=== PATIENT | female | born 1955 | race Caucasian/White ===

== ENCOUNTER 2019-07-26 22:31 | Inpatient (IN) | payer OTHER ==
[~2019-07-26] VITALS: Ht 177.8 cm; Wt 76.7 kg
[~2019-07-26 22:31] MED LIST: ACET12.55 PO; AMLO10TA7 PO; BLOO-129 IN; DARI7.5T PO; FLUO20CA42 PO; FURO20TA4 PO; HYDR25TA4 PO; INSU100V27 SQ; INSU100V7 SQ; LEVO100T9 PO; LEVO300T6 PO; LISI40TA4 PO; LOVA40TA2 PO; PANT40TA4 PO; TRAZ150T75 PO
--- NOTE | 2019-07-26 22:45 | NUR ---
PRESENTED TO THE ER FRO EVALUATION OF R KNEE PAIN. PT DENIED ANY INJURY OR ACCIDENT.
--- NOTE | 2019-07-26 22:51 | NUR ---
AT THE BED SIDE
[2019-07-26] MEDS ORDERED: KETOROLAC TROMETHAMINE INJ 30 MG/ML VIAL ONE (22:59)
[2019-07-26] MEDS ORDERED: KETOROLAC TROMETHAMINE INJ 30 MG/ML VIAL IM ONE (23:00)
[2019-07-27 01:38] LABS: BASOPHILS % (AUTO) 0.2 % (0.0-2.0); EOSINOPHILS % (AUTO) 0.5 % (0.0-6.0); HEMATOCRIT 24 % (33-45); HEMOGLOBIN 7.5 g/dL (11.5-14.8); LYMPHOCYTES # (AUTO) 0.5 /CMM (0.8-4.8); LYMPHOCYTES % (AUTO) 3.6 % (20.0-44.0); MEAN CORPUSCULAR HGB CONC 32 g/dl (31.0-36.0); MEAN CORPUSCULAR VOLUME 87 fL (82-100); MONOCYTES # (AUTO) 0.4 /CMM (0.1-1.30); MONOCYTES % (AUTO) 2.7 % (2.0-12.0); NEUTROPHILS # (AUTO) 13.1 /CMM (1.8-8.9); PLATELET COUNT (AUTO) 232 /CMM (150-450); RED BLOOD CELL COUNT(AUTO) 2.71 MIL/uL (4.0-5.2); WHITE BLOOD COUNT (AUTO) 14.1 K/uL (4.3-11.0)
[2019-07-27 01:45] LABS: CALCIUM, SERUM 8.2 mg/dL (8.5-10.1); CREATININE 3.2 mg/dL (0.6-1.3); POTASSIUM 4.8 mmol/L (3.5-5.1)
[2019-07-27] MEDS ORDERED: AMLO10TA7 PO (02:02)
[2019-07-27] MEDS ORDERED: OXYC60TA8 PO (02:02)
[2019-07-27] MEDS ORDERED: BIOT5000 PO (02:02)
[2019-07-27] MEDS ORDERED: LEVO75TA7 PO (02:02)
[2019-07-27] MEDS ORDERED: HYDR-4077 PO (02:02)
[2019-07-27] MEDS ORDERED: TRAZ-257 PO (02:02)
[2019-07-27] MEDS ORDERED: CARV25TA2 PO (02:02)
[2019-07-27] MEDS ORDERED: ISOS60TA4 PO (02:02)
[2019-07-27] MEDS ORDERED: FLUO40CA49 PO (02:02)
[2019-07-27] MEDS ORDERED: CLOP75TA15 PO (02:02)
[2019-07-27] MEDS ORDERED: METO-295 PO (02:02)
--- NOTE | 2019-07-27 04:00 | NUR ---
pt was transferred to the floor in stable condition
[2019-07-27 04:20] VITALS: BP 170/57
--- NOTE | 2019-07-27 04:20 | NUR ---
MS RN NOTES RECEIVED PATIENT ON 419. PATIENT IS ALERT AND ORIENTED X 4. BREATHING EVEN AND UNLABORED ON 2L NC. SHOWS NO SIGNS OF ACUTE RESPIRATORY DISTRESS. NO ACUTE PAIN. IV ON R HAND 22G. SHOWS NO SIGNS OF INFILTRATION, NO REDNESS. CLEAN DRY AND INTACT. BELONGINGS CHECKLIST COMPLETED AND SKIN ASSESSMENT COMPLETED. SAFETY PRECAUTIONS IN PLACE. BED IN LOWEST POSITION, LOCKED, AND CALL LIGHT KEPT WITHIN REACH. WILL CONTINUE TO MONITOR.
[2019-07-27] MEDS ORDERED: HYDROCODONE/APAP 5/325MG 1 EACH TABLET PO PRN (04:30)
[2019-07-27] MEDS ORDERED: ACETAMINOPHEN 325 MG TABLET PO PRN (04:30)
[2019-07-27] MEDS ORDERED: Z GUARD REMEDY 2 OZ OINT TP PRN (04:30)
[2019-07-27] MEDS ORDERED: ONDANSETRON HCL/PF 4 MG/2 ML VIAL IVP PRN (04:30)
[2019-07-27 04:32] LABS: ALANINE AMINOTRANSFERASE 15 U/L (12-78); ALBUMIN 2.6 g/dL (3.4-5.0); ALKALINE PHOSPHATASE 99 U/L (46-116); ASPARTATE AMINOTRANSFERASE 16 U/L (15-37); BILIRUBIN,TOTAL 0.1 mg/dL (0.2-1.0)
[2019-07-27 04:44] LABS: IRON, SERUM 57 ug/dl (50-175); TOTAL IRON BINDING CAPACITY 158 ug/dl (250-450)
[2019-07-27 05:30] VITALS: BP 150/46
[2019-07-27] MEDS ORDERED: KETOROLAC TROMETHAMINE 10 MG TABLET PO PRN (06:00)
--- NOTE | 2019-07-27 06:37 | NUR ---
MS RN NOTES PATIENT IS ALERT AND ORIENTED X3- 4. BREATHING EVEN AND UNLABORED ON 2L NC. SHOWS NO SIGNS OF ACUTE RESPIRATORY DISTRESS. NO ACUTE PAIN. IV ON R HAND 22G. SHOWS NO SIGNS OF INFILTRATION, NO REDNESS. CLEAN DRY AND INTACT. ALL DUE MEDICATIONS GIVEN. SAFETY PRECAUTIONS IN PLACE. BED IN LOWEST POSITION, LOCKED, AND CALL LIGHT KEPT WITHIN REACH. WILL ENDORSE TO ONCOMING NURSE.
--- NOTE | 2019-07-27 07:47 | NUR ---
MS RN NOTES RECEIVED PATIENT IN BED RESTING COMFORTABLY IN MODERATE HIGH BACK REST. IS ALERT AND ORIENTED X3- 4. ON OXYGEN 2LPM VIA NC. NO SIGNS OF DISTRESS NOTED AT THIS TIME. NO IV ACCESS AT THIS TIME, WILL TRY TO INSERT IV LATER. SAFETY PRECAUTIONS IN PLACE. BED IN LOWEST POSITION, LOCKED, AND CALL LIGHT KEPT WITHIN REACH. WILL CONTINUE TO MONITOR.
[2019-07-27 08:00] VITALS: BP 181/57
[2019-07-27] MEDS: PANTOPRAZOLE 40 MG TABLET.DR PO SCH (08:17)
[2019-07-27] MEDS: AMLODIPINE BESYLATE 5 MG TABLET PO SCH (08:32)
[2019-07-27] MEDS: MINERAL OIL/PETROLATUM,WHITE 120 GM JAR TP SCH (10:00)
--- NOTE | 2019-07-27 10:01 | NUR ---
WOUND CARE CONSULT: PT PRESENTS WITH RASH TO RT BREASTFOLD, SACRAL SCARRING AND DRY SKIN TO LOWER LEGS AND FEET, PRESENT ON ADMISSION. RECOMMENDATIONS MADE FOR SKIN PROTECTION AND SKIN CARE. DISCUSSED WITH NURSING STAFF. WILL SEE PRN. VAZQUEZ IN AGREEMENT WITH PLAN OF CARE. CURRENT EVELIA SCORE IS 15. Addendum: 07/27/19 at 1003 by LUNA MITCHELL WNDNU Amended: Links added.
--- NOTE | 2019-07-27 10:57 | NUR ---
RN NOTES EUCERIN CREAM NOT AVAILABLE AT THIS TIME, F/U WITH PHARMACY ALREADY. WAITING TO BE DELIVERED.
[2019-07-27] MEDS: oxyCODONE/APAP (5/325 MG) 1 UDTAB TABLET PO PRN ×2 (12:16→18:58)
[2019-07-27 16:00] VITALS: BP 153/68
[2019-07-27] MEDS: CLOTRIMAZOLE 1% 15 GM TUBE TP SCH (16:11)
[2019-07-27] MEDS: CLONIDINE HCL 0.1 MG TABLET PO PRN (17:14)
--- NOTE | 2019-07-27 18:33 | NUR ---
MS RN NOTES PATIENT IN BED RESTING COMFORTABLY IN MODERATE HIGH BACK REST. IS ALERT AND ORIENTED X3- 4. ON OXYGEN 2LPM VIA NC. ON TELE MONITORING WITH CURRENT READING OF SR WITH HR OF 70'S. NO SIGNS OF DISTRESS NOTED. IV ACCESS ON LEFT FA#18, PATENT AND INTACT. SAFETY PRECAUTIONS IN PLACE. BED IN LOWEST POSITION, LOCKED, AND CALL LIGHT KEPT WITHIN REACH. WILL ENDORSE TO HORSERADISH GRINDER NURSE FOR FADY.
--- NOTE | 2019-07-27 18:50 | NUR ---
RN NOTES LATEST BP IS 170/59, EVEN AFTER GIVING CLONIDINE 0.1 MG @ 17:14. DR. SIMON MADE AWARE. WAITING TO RESPOND. WILL ENDORSE TO PENSIONS RETIREMENT PLAN SPECIALIST NURSE FOR FADY.
--- NOTE | 2019-07-27 19:50 | NUR ---
DIRECTOR OF DONOR RELATIONS NOTE: PATIENT RESTING IN BED, NO ACUTE DISTRESS NOTED. BREATHING EVEN AND UNLABORED, NO SOB NOTED. IV TO LFA IN PLACE, TELE READING SR 68. BED LOCKED AND IN LOWEST POSITION, CALL LIGHT IN REACH. WILL CONTINUE TO MONITOR.
[2019-07-27 20:00] VITALS: BP 187/68
[2019-07-27] MEDS: METOPROLOL TARTRATE 25 MG TABLET PO SCH (20:50)
--- NOTE | 2019-07-27 21:00 | NUR ---
DATAPOWER CONSULTANT NOTE: PATIENT BLOOD PRESSURE ELEVATED 189/90, HR 86. RECEIVED NEW ORDERS FOR METOPROLOL 25MG 1 TAB ORAL, ORDER NOTED AND CARRIED OUT. METOPROLOL 25MG 1 TAB ORAL GIVEN PER MO ORDER. WILL CONTINUE TO MONITOR.
[2019-07-27] MEDS: TEMAZEPAM 15 MG CAPSULE PO PRN (23:51)
--- NOTE | 2019-07-27 23:55 | NUR ---
MILLINERY WORKER NOTE: PATIENT REQUESTING FOR SLEEPING MEDICATION. RESTORIL 15MG 1 CAP ORAL GIVEN PER MD ORDER. WILL CONTINUE TO MONITOR.
[2019-07-28] VITALS: BP 185/59
[2019-07-28] MEDS: oxyCODONE/APAP (5/325 MG) 1 UDTAB TABLET PO PRN ×3 (01:01→17:56)
[2019-07-28] MEDS: CLONIDINE HCL 0.1 MG TABLET PO PRN ×3 (01:01→17:56)
--- NOTE | 2019-07-28 01:05 | NUR ---
SALES MANAGER NOTE: PATIENT BLOOD PRESSURE STILL ELEVATED AT 189/59, HR 69, CATAPRES 0.1MG ORAL GIVEN PER MD ORDER. PATIENT ALSO COMPLAINS OF PAIN TO LEFT KNEE 12/31, PERCOCET 5/325MG 1 TAB ORAL GIVEN PER MD ORDER. WILL CONTINUE TO MONITOR. Addendum: 07/28/19 at 0610 by SEA VIDAL RN RIGHT KNEE
[2019-07-28 04:00] VITALS: BP 198/64
--- NOTE | 2019-07-28 05:00 | NUR ---
CUPOLA PATCHER HELPER NOTE: PATIENT BLOOD PRESSURE STILL ELEVATED AT 190/64, HR 66, CATAPRES ALREADY GIVEN 4 HOURS AGO. PATIENT STILL COMPLAINS OF PAIN TO RIGHT KNEE, PERCOCET ALSO ALREADY GIVEN. CALLED [employer]CHO[employer] ATTENDANCE SECRETARY EPIC SERVICE, AWAITING CALL BACK. WILL CONTINUE TO MONITOR.
--- NOTE | 2019-07-28 06:10 | NUR ---
LAND [place] INFORMATION CLERK NOTE: PATIENT RESTING IN BED, NO ACUTE DISTRESS NOTED. BREATHING EVEN AND UNLABORED, NO SOB NOTED. IV TO LFA IN PLACE, TELE READING SR 60'S. RECEIVED CALL BACK FOR MDS MANAGER MD WITH NEW ORDERS FOR NORCO 10/325MG ORAL DAILY, ORDER NOTED AND CARRIED OUT. BED LOCKED AND IN LOWEST POSITION, CALL LIGHT IN REACH. WILL ENDORSE TO DAY NURSE TO CONTINUE WITH PLAN OF CARE.
[2019-07-28] MEDS ORDERED: HYDROCODONE/APAP 10/325MG 1 EA TABLET PO PRN (06:30)
[2019-07-28] MEDS: HYDROCODONE/APAP 10/325MG 1 EA TABLET PO SCH (06:47)
[2019-07-28 07:10] LABS: BASOPHILS # (AUTO) 0.1 /CMM (0.0-0.2); EOSINOPHILS % (AUTO) 4.4 % (0.0-6.0); HEMATOCRIT 24 % (33-45); HEMOGLOBIN 7.9 g/dL (11.5-14.8); LYMPHOCYTES # (AUTO) 0.9 /CMM (0.8-4.8); LYMPHOCYTES % (AUTO) 7.6 % (20.0-44.0); MEAN CORPUSCULAR HGB CONC 33 g/dl (31.0-36.0); MEAN CORPUSCULAR VOLUME 85 fL (82-100); MONOCYTES # (AUTO) 0.9 /CMM (0.1-1.30); MONOCYTES % (AUTO) 7.7 % (2.0-12.0); NEUTROPHILS # (AUTO) 9.3 /CMM (1.8-8.9); NEUTROPHILS % (AUTO) 79.3 % (43.0-81.0); PLATELET COUNT (AUTO) 219 /CMM (150-450); RED BLOOD CELL COUNT(AUTO) 2.85 MIL/uL (4.0-5.2); WHITE BLOOD COUNT (AUTO) 11.7 K/uL (4.3-11.0)
[2019-07-28 07:23] LABS: ALBUMIN 2.7 g/dL (3.4-5.0); BILIRUBIN,TOTAL 0.4 mg/dL (0.2-1.0); CREATININE 2.9 mg/dL (0.6-1.3); MAGNESIUM 2.2 mg/dL (1.8-2.4); POTASSIUM 4.1 mmol/L (3.5-5.1); TOTAL PROTEIN, SERUM 6.1 g/dL (6.4-8.2)
--- NOTE | 2019-07-28 07:50 | NUR ---
ms rn received on bed, awake,alert,oriented x4,not in any form of distress, respirations even and unlabored,no sob noted, denies pain at this time, will monitor patient.
[2019-07-28 08:00] VITALS: BP 190/72
[2019-07-28] MEDS: AMLODIPINE BESYLATE 5 MG TABLET PO SCH (09:13)
[2019-07-28] MEDS: PANTOPRAZOLE 40 MG TABLET.DR PO SCH (09:13)
[2019-07-28] MEDS: METOPROLOL TARTRATE 25 MG TABLET PO SCH ×2 (09:13→20:54)
[2019-07-28] MEDS: MINERAL OIL/PETROLATUM,WHITE 120 GM JAR TP SCH (09:16)
[2019-07-28] MEDS: CLOTRIMAZOLE 1% 15 GM TUBE TP SCH ×2 (09:16→18:00)
--- NOTE | 2019-07-28 09:20 | NUR ---
ms rn gave morning meds, tolerated well, b/p elevated, will recheck.
--- NOTE | 2019-07-28 10:30 | NUR ---
ms rn was seen by dr. josue cruz/ orders made and carried out.
[2019-07-28] MEDS: ENOXAPARIN SODIUM 30 MG/0.3 ML DISP.SYRIN SQ SCH (11:48)
[2019-07-28 12:00] VITALS: BP 182/62
[2019-07-28 13:33] LABS: THYROID STIMULATING HORMONE 0.024 uIU/mL (0.358-3.74)
[2019-07-28 16:00] VITALS: BP 183/63
[2019-07-28] MEDS: IV NS 0.9% 1,000 ML IV PRN (18:02)
--- NOTE | 2019-07-28 19:30 | NUR ---
MS/RN NOTES RECEIVED PT. LYING IN BED. PT. IS AWAKE, ALERT AND ORIENTED X3. BREATHING EVEN AND UNLABORED ON 4LPM O2 VIA NC. NO SOB, RESPIRATORY DISTRESS NOTED AT THIS TIME. PT. COMPLAINING OF PAIN IN HER RIGHT LEG BUT STATES IT HAS IMPROVED SINCE SHE RECEIVED HER PAIN MEDICATION RECENTLY. PT. WITH LEFT FOREARM 18 GAUGE IV SALINE LOCK PRESENT, PATENT AND INTACT. PT. WITH FAMILY MEMBERS PRESENT AT BEDSIDE. BED LOCKED AND IN LOWEST POSITION, SIDE RAILS UP X2, CALL LIGHT WITHIN REACH, WILL CONTINUE TO MONITOR.
[2019-07-28 20:00] VITALS: BP 181/56
[2019-07-28] MEDS ORDERED: DEXTROSE 50%-WATER 50 ML DISP.SYRIN IV PRN (20:30)
[2019-07-28] MEDS ORDERED: METOCLOPRAMIDE HCL 10 MG TABLET PO PRN (20:30)
[2019-07-28] MEDS ORDERED: TRAZODONE 50 MG TABLET PO PRN (20:30)
[2019-07-28] MEDS: hydrALAZINE HCL 50 MG TABLET PO SCH (20:54)
[2019-07-28] MEDS: BLOOD SUGAR DIAGNOSTIC 1 EACH STRIP IN SCH (22:16)
[2019-07-28] MEDS: INSULIN REGULAR, HUMAN 100 UNIT/ML 3 ML VIAL SQ PRN (22:17)
[2019-07-29] MEDS: oxyCODONE/APAP (5/325 MG) 1 UDTAB TABLET PO PRN ×3 (00:31→18:17)
[2019-07-29] MEDS: TEMAZEPAM 15 MG CAPSULE PO PRN ×2 (01:49→23:31)
[2019-07-29 04:00] VITALS: BP 162/79
[2019-07-29] MEDS: CLONIDINE HCL 0.1 MG TABLET PO PRN (04:28)
[2019-07-29 06:11] LABS: PTH, INTACT 120 pg/mL (15-65)
[2019-07-29 06:41] LABS: BASOPHILS # (AUTO) 0.1 /CMM (0.0-0.2); EOSINOPHILS % (AUTO) 4.1 % (0.0-6.0); HEMATOCRIT 23 % (33-45); HEMOGLOBIN 7.7 g/dL (11.5-14.8); LYMPHOCYTES # (AUTO) 1.2 /CMM (0.8-4.8); LYMPHOCYTES % (AUTO) 11.4 % (20.0-44.0); MEAN CORPUSCULAR HGB CONC 33 g/dl (31.0-36.0); MEAN CORPUSCULAR VOLUME 85 fL (82-100); MONOCYTES # (AUTO) 0.8 /CMM (0.1-1.30); MONOCYTES % (AUTO) 7.9 % (2.0-12.0); NEUTROPHILS % (AUTO) 75.6 % (43.0-81.0); PLATELET COUNT (AUTO) 210 /CMM (150-450); RED BLOOD CELL COUNT(AUTO) 2.76 MIL/uL (4.0-5.2); WHITE BLOOD COUNT (AUTO) 10.5 K/uL (4.3-11.0)
--- NOTE | 2019-07-29 06:50 | NUR ---
MS/RN NOTES PT. IS LYING IN BED RESTING. BREATHING EVEN AND UNLABORED ON 4LPM O2 VIA NC. NO SOB, RESPIRATORY DISTRESS OR COMPLAINTS OF PAIN NOTED AT THIS TIME. PT. WITH LEFT FOREARM 18 GAUGE IV SALINE LOCK PRESENT, PATENT AND INTACT. ALL PT. NEEDS MET. PT. ONLY ALLOWED TO BE TURNED/REPOSITIONED ONCE THROUGHOUT THE NIGHT. EDUCATED PT. ON RISK VS BENEFIT. PT. VERBALIZED UNDERSTANDING AND CONTINUED TO REFUSE. BED LOCKED AND IN LOWEST POSITION, SIDE RAILS UP X2, CALL LIGHT WITHIN REACH, WILL ENDORSE TO DAYSHIFT NURSE FOR CONTINUITY OF CARE.
[2019-07-29] MEDS: DOXAZOSIN MESYLATE (1 MG) 1 MG TABLET PO SCH ×2 (06:52→21:35)
--- NOTE | 2019-07-29 07:10 | NUR ---
RN OPENING NOTE: RECEIVED PATIENT IN BED THIS MORNING RESTING IN BED. NO ACUTE DISTRESS NOTED. ATTAIN TO NEEDS. PATIENT IS A/OX3, RESPONDS APPROPRIATELY. BED REST. REFER TO WOUND CARE ORDERS FOR SKIN CARE. 18 G SALINE LOCK ON LFA. PATIENT IS ON A CARDIAC DIET. BREATH SOUNDS CLEAR UPON AUSCULTATION. 02 VIA NC @ 4L/MIN. SAFETY MEASURES IMPLEMENTED. CALL LIGHT IS WITHIN REACH. BED IN LOWEST POSITION WITH SIDE RAILS UP X2. WILL CONTINUE TO MONITOR PATIENT FOR ANY CHANGES.
[2019-07-29 07:13] LABS: ALBUMIN 2.2 g/dL (3.4-5.0); BILIRUBIN,TOTAL 0.3 mg/dL (0.2-1.0); CALCIUM, SERUM 7.8 mg/dL (8.5-10.1); CREATININE 2.8 mg/dL (0.6-1.3); MAGNESIUM 1.8 mg/dL (1.8-2.4); PHOSPHORUS 4.5 mg/dL (2.5-4.9); POTASSIUM 4.2 mmol/L (3.5-5.1); TOTAL PROTEIN, SERUM 5.2 g/dL (6.4-8.2)
[2019-07-29] MEDS: BLOOD SUGAR DIAGNOSTIC 1 EACH STRIP IN SCH ×4 (08:02→22:03)
[2019-07-29] MEDS: ENOXAPARIN SODIUM 30 MG/0.3 ML DISP.SYRIN SQ SCH (08:13)
[2019-07-29] MEDS: FLUOXETINE HCL 20 MG CAPSULE PO SCH (08:14)
[2019-07-29] MEDS: LEVOTHYROXINE SODIUM 75 MCG TABLET PO SCH (08:14)
[2019-07-29] MEDS: ISOSORBIDE MONONITRATE (30MG) 30 MG TAB.SR.24H PO SCH (08:16)
[2019-07-29] MEDS: AMLODIPINE BESYLATE 10 MG TABLET PO SCH (08:16)
[2019-07-29] MEDS: hydrALAZINE HCL 50 MG TABLET PO SCH ×4 (08:16→21:35)
[2019-07-29] MEDS: PANTOPRAZOLE 40 MG TABLET.DR PO SCH (08:16)
[2019-07-29] MEDS: HYDROCODONE/APAP 10/325MG 1 EA TABLET PO SCH (08:17)
[2019-07-29] MEDS: INSULIN REGULAR, HUMAN 100 UNIT/ML 3 ML VIAL SQ PRN ×3 (08:17→22:12)
[2019-07-29] MEDS: CLOPIDOGREL BISULFATE 75 MG TABLET PO SCH (08:17)
[2019-07-29] MEDS: METOPROLOL TARTRATE 25 MG TABLET PO SCH ×2 (08:18→21:35)
[2019-07-29] MEDS ORDERED: CARVEDILOL 25 MG TABLET PO SCH (09:00)
[2019-07-29] MEDS: CLOTRIMAZOLE 1% 15 GM TUBE TP SCH ×2 (09:15→17:34)
[2019-07-29] MEDS: MINERAL OIL/PETROLATUM,WHITE 120 GM JAR TP SCH (09:15)
[2019-07-29 15:19] LABS: *SPE ALBUMIN 2.7 g/dL (2.9-4.4); *SPE ALPHA-1-GLOBULIN 0.3 g/dL (0.0-0.4); *SPE ALPHA-2-GLOBULIN 0.9 g/dL (0.4-1.0); *SPE BETA GLOBULIN 0.9 g/dL (0.7-1.3); *SPE GLOBULIN, TOTAL 2.7 g/dL (2.2-3.9); *SPE M-SPIKE Not Observed g/dL (Not Observed); *SPEGAMMA GLOBULIN 0.6 g/dL (0.4-1.8)
[2019-07-29] MEDS: IV NS 0.9% 1,000 ML IV PRN (16:30)
--- NOTE | 2019-07-29 16:49 | NUR ---
PATIENT C/O NO URINATION FOR OVER 24 HOURS. BLADDER SCAN COMPLETE WITH >1000CC OF RETAINED URINE. CONTACTED DR SIMON WITH NEW ORDERS FOR AIKEN AND UA. WILL CARRY OUT ORDERS.
--- NOTE | 2019-07-29 19:08 | NUR ---
RN CLOSING NOTE: PATIENT IS CURRENTLY RESTING IN BED. NO ACUTE DISTRESS NOTED/ACUTE CHANGES NOTED THROUGHOUT SHIFT. AIKEN CATHETER INSERTED D/T URINARY RETENTION, NO SIGNS OF COMPLICATIONS NOTED. VSS. PATIENT NEEDS HAVE BEEN MET. SAFETY MEASURES HAVE BEEN IMPLEMENTED. BED IN LOWEST AND LOCKED POSITION, SIDE RAILS UP X2, CALL LIGHT WITHIN REACH. HANDOFF REPORT TO ONCOMING NURSE FOR CONTINUITY OF CARE.
--- NOTE | 2019-07-29 20:00 | NUR ---
MS/RN OPENING NOTES RECEIVED PATIENT IN BED, AWAKE, ALERT X2, NO GRIMACE OR GUARDING, COMPLIANT TO CARE. RESPIRATIONS EVEN AN UNLABORED, ON ROOM AIR, SKIN WARM TO TOUCH. KEPT COMFORTABLE, ASSISTED WITH ALL NEEDS, MONITORING FOR ANY CHANGES. CAREGIVER AT BEDSIDE, BED LOCKED. CALL LIGHTS WITHIN REACH. RECEIVED ENDORSEMENT FROM AM RN FOR FADY. IV FLUIDS RUNNING, RIGHT AC PATENT. Addendum: 07/29/19 at 2149 by CASSIDY SHAH RN PLS DISREGARD FOR ANOTHER PATIENT
--- NOTE | 2019-07-29 20:00 | NUR ---
MS/RN OPENING NOTES RECEIVED PATIENT IN BED, AWAKE, ALERT X3, ABLE TO VERBALIZE NEEDS, FAMILY AT BEDSIDE, DISCUSSED PLAN OF CARE, ON ROOM AIR, RESPIRATIONS EVEN AND UNLABORED. SKIN WARM TO TOUCH. BED LOCKED, OFFERED AND PROVIDED FLUIDS, NO PAIN REPORTED BUT REQUESTING FOR STOOL SOFTENER, NO BM FOR 2 DAYS REPORTED. WILL MONITOR.
[2019-07-29 21:24] LABS: APPEARANCE,URINE CLEAR (CLEAR); BILIRUBIN,URINE NEGATIVE (NEGATIVE); BLOOD, URINE TRACE-INTA Ery/uL (NEGATIVE); COLOR,URINE YELLOW (YELLOW); KETONES,URINE NEGATIVE (NEGATIVE); LEUKOCYTE ESTERASE ,URINE NEGATIVE (NEGATIVE); NITRITE, URINE NEGATIVE (NEGATIVE); PH,URINE 6.5 (5.0-8.0); PROTEIN,URINE >=300 mg/dl (NEGATIVE); UGLUCOSE 500 MG/DL mg/dL (NEGATIVE); UROBILINOGEN,URINE 0.2 EU/dL (0.2)
--- NOTE | 2019-07-29 21:30 | NUR ---
ms/rn notes PATIENT REPORTED NO BM FOR 2 DAYS REQUESTING COLACE BE GIVEN PO TEICE A DAY FOR BOWEL MANAGEMENT WITH MD ORDER.
[2019-07-29 21:38] LABS: BACTERIA,URINE Few /HPF (None Seen); SQUAMOUS EPITHELIAL CELL,UR Few /HPF (None Seen); URINE AMORPHOUS URATE Moderate /HPF (None Seen); WBC,URINE 0-2 /HPF (0-3)
[2019-07-29 21:56] LABS: CREATININE, URINE 41.8 MG/DL (30.0-125.0)
--- NOTE | 2019-07-29 23:35 | NUR ---
MS/RN NOTES RESTORIL 15 MG PO CAPSULE GOR SLEEP MEDICATION REQUESTED TO MONITOR HOURS OF SLEEP.
[2019-07-30] MEDS: oxyCODONE/APAP (5/325 MG) 1 UDTAB TABLET PO PRN ×3 (01:09→14:31)
--- NOTE | 2019-07-30 01:09 | NUR ---
ms/rn notes PAIN MEDICATION REQUESTED BY PATIENT FOR GENERALIZED PAIN NEEDED MEDICATION PERCOCET 5-325 MG PO.
[2019-07-30 04:00] VITALS: BP 156/70
--- NOTE | 2019-07-30 06:20 | NUR ---
113-1 MS/RN NOTES PATIENT ABLE TO SLEEP WITH PAIN MEDICATION GIVEN, ON PAIN MANAGEMENT AND MONITORED FOR RELIEF. RESPIRATIONS EVEN ADN UNLABOREDM ON IV HYDRATION, WILL NONITOR. WILL ENDORSE TO AN RN FOR .
[2019-07-30] MEDS: BLOOD SUGAR DIAGNOSTIC 1 EACH STRIP IN SCH ×2 (07:31→12:00)
[2019-07-30] MEDS: PANTOPRAZOLE 40 MG TABLET.DR PO SCH (07:35)
[2019-07-30] MEDS: INSULIN REGULAR, HUMAN 100 UNIT/ML 3 ML VIAL SQ PRN (07:36)
[2019-07-30 08:00] VITALS: BP_SYST 129; BP_SYST 161; BP_DIAS 68; BP_DIAS 74
[2019-07-30 08:13] LABS: CALCIUM, SERUM 7.9 mg/dL (8.5-10.1); CREATININE 2.7 mg/dL (0.6-1.3); PHOSPHORUS 5.1 mg/dL (2.5-4.9); POTASSIUM 4.1 mmol/L (3.5-5.1)
[2019-07-30 08:25] LABS: HEMATOCRIT 22 % (33-45); HEMOGLOBIN 7.4 g/dL (11.5-14.8); LYMPHOCYTES # (AUTO) 0.3 /CMM (0.8-4.8); LYMPHOCYTES % (AUTO) 3.1 % (20.0-44.0); MEAN CORPUSCULAR HGB CONC 34 g/dl (31.0-36.0); MEAN CORPUSCULAR VOLUME 84 fL (82-100); MONOCYTES # (AUTO) 1.8 /CMM (0.1-1.30); MONOCYTES % (AUTO) 20.1 % (2.0-12.0); NEUTROPHILS # (AUTO) 6.2 /CMM (1.8-8.9); NEUTROPHILS % (AUTO) 68.8 % (43.0-81.0); PLATELET COUNT (AUTO) 204 /CMM (150-450); RED BLOOD CELL COUNT(AUTO) 2.61 MIL/uL (4.0-5.2); WHITE BLOOD COUNT (AUTO) 9.1 K/uL (4.3-11.0)
[2019-07-30] MEDS: CLOPIDOGREL BISULFATE 75 MG TABLET PO SCH (08:49)
[2019-07-30] MEDS: ISOSORBIDE MONONITRATE (30MG) 30 MG TAB.SR.24H PO SCH (08:49)
[2019-07-30] MEDS: LEVOTHYROXINE SODIUM 75 MCG TABLET PO SCH (08:49)
[2019-07-30 08:50] LABS: EOSINOPHILS % (MANUAL) 8 % (0-4); LYMPHOCYTES % (MANUAL) 9 % (16-48); MONOCYTES % (MANUAL) 4 % (0-11.0); NEUTROPHILS % (MANUAL) 79 (42-76)
[2019-07-30] MEDS: AMLODIPINE BESYLATE 10 MG TABLET PO SCH (08:50)
[2019-07-30] MEDS: HYDROCODONE/APAP 10/325MG 1 EA TABLET PO SCH (08:50)
[2019-07-30] MEDS: METOPROLOL TARTRATE 25 MG TABLET PO SCH (08:51)
[2019-07-30] MEDS: FLUOXETINE HCL 20 MG CAPSULE PO SCH (08:51)
[2019-07-30] MEDS: ENOXAPARIN SODIUM 30 MG/0.3 ML DISP.SYRIN SQ SCH (08:55)
[2019-07-30 08:56] VITALS: BP 129/68
[2019-07-30] MEDS: hydrALAZINE HCL 50 MG TABLET PO SCH (08:56)
[2019-07-30] MEDS: MINERAL OIL/PETROLATUM,WHITE 120 GM JAR TP SCH (09:00)
[2019-07-30] MEDS ORDERED: DOCUSATE SODIUM 100 MG CAPSULE PO SCH (09:00)
[2019-07-30] MEDS: CLOTRIMAZOLE 1% 15 GM TUBE TP SCH (09:00)
[2019-07-30 09:56] LABS: ALBUMIN 2.1 g/dL (3.4-5.0); BILIRUBIN,DIRECT 0.1 mg/dL (0.0-0.2); BILIRUBIN,TOTAL 0.2 mg/dL (0.2-1.0); TOTAL PROTEIN, SERUM 4.8 g/dL (6.4-8.2)
--- NOTE | 2019-07-30 12:10 | NUR ---
F/C removed per dr. Short
--- NOTE | 2019-07-30 15:12 | NUR ---
Report called to Ronda from [facility].
--- NOTE | 2019-07-30 16:00 | NUR ---
Patient urinated . No pain , no bleeding noted
--- NOTE | 2019-07-30 16:21 | NUR ---
Patient cleared for d/c to [facility] by . Patient alert and oriented x4 , bereaving unlabored and even on 2l O2 via NC. VS are stable and patient not in any distress. All needs attended prior discharge. Patient educated and d/c instructions provided; patient verbalized understanding. Patient sighed d/c instructions and valuable form and all belongings with the patient. IV line removed , I D wrist band removed. D/C pictures taken and placed in the chart ( pt's skin intact , no open cardozo found). PAtient picked up by ambulance and safely transferred to facility .Pt notified .
[2019-07-31 07:08] LABS: COMPLEMENT C3, SERUM 81 mg/dL (82-167); COMPLEMENT C4, SERUM 20 mg/dL (14-44)
[2019-07-31 16:06] LABS: *ANA ANTI-CENTROMERE B AB <0.2 AI (0.0-0.9); *ANA ANTI-DNA(DS) AB, QN <1 IU/mL (0-9); *ANA ANTI-JO-1 <0.2 AI (0.0-0.9); *ANA ANTICHROMATIN ANTIBODY <0.2 AI (0.0-0.9); *ANA RNP ANTIBODIES <0.2 AI (0.0-0.9); *ANA SJOGREN'S ANTI-SS-A <0.2 AI (0.0-0.9); *ANA SJOGREN'S ANTI-SS-B 4.3 AI (0.0-0.9); *ANAANTI-SCLERODERMA-70 AB <0.2 AI (0.0-0.9); *ANASMITH AB <0.2 AI (0.0-0.9)
== END 2019-07-30 17:00 | DRG 682 ==
LOC: ER 22:33 → MEDSG1 07-27 02:43 → TELE1 07-27 21:11 → MEDSG1 07-28 11:03
PROVIDERS: ADMIT Internal Medicine; ATTEND Internal Medicine
DX: N17.0 Acute kidney failure with tubular necrosis (principal); E43 Unspecified severe protein-calorie malnutrition; E87.1 Hypo-osmolality and hyponatremia; I13.0 Hypertensive heart and chronic kidney disease with heart failure and stage 1 through stage 4 chronic kidney disease, or unspecified chronic kidney disease; D68.59 Other primary thrombophilia; I50.32 Chronic diastolic (congestive) heart failure; F11.20 Opioid dependence, uncomplicated; M25.561 Pain in right knee; E11.22 Type 2 diabetes mellitus with diabetic chronic kidney disease; G89.4 Chronic pain syndrome; Z92.3 Personal history of irradiation; Z87.442 Personal history of urinary calculi; Z85.850 Personal history of malignant neoplasm of thyroid; Z79.899 Other long term (current) drug therapy; Z88.5 Allergy status to narcotic agent; Z88.0 Allergy status to penicillin; Z79.4 Long term (current) use of insulin; M79.7 Fibromyalgia; I35.0 Nonrheumatic aortic (valve) stenosis; M81.0 Age-related osteoporosis without current pathological fracture; N18.9 Chronic kidney disease, unspecified; E86.1 Hypovolemia; M06.9 Rheumatoid arthritis, unspecified; E78.5 Hyperlipidemia, unspecified; W19.XXXA Unspecified fall, initial encounter; Z74.09 Other reduced mobility; D63.8 Anemia in other chronic diseases classified elsewhere; D63.1 Anemia in chronic kidney disease; D72.829 Elevated white blood cell count, unspecified; E89.0 Postprocedural hypothyroidism; Z74.01 Bed confinement status
CPT/HCPCS: 36415; 71045-TC; 73564-TC; 73590-TC; 73610-TC; 76770-TC; 80048-TC; 80053-TC; 80076-TC; 81000-TC; 82550-TC; 82570-TC; 82728-TC; 82962-TC; 83540-TC; 83735-TC; 83970; 84100-TC; 84155; 84155-TC; 84165; 84300-TC; 84439-TC; 84443-TC; 84484-TC; 85025-TC; 85652-TC; 86225; 86235; 86706; 86803; 87081-TC; 87086-TC; 87340; 93307-TC; 97530-TC; G0378; J1650; J1815; J1885; J7030